=== PATIENT | male | born 2000 | race Two or more races ===

== ENCOUNTER 2024-05-09 11:34 | Emergency (ER) | payer OTHER ==
[~2024-05-09] VITALS: Ht 175.3 cm; Wt 104.5 kg
[2024-05-09 13:45] VITALS: BP 116/68; PULSE 76; RESP 16; TEMP 97.9; O2SAT 99
== END 2024-05-09 13:47 | disposition home or self-care (01) ==
LOC: ER 11:36
DX: B33.8 Other specified viral diseases (principal); R53.83 Other fatigue; R52 Pain, unspecified
CPT/HCPCS: 99282